=== PATIENT | male | born 1940 | race American Indian/Alaskan Native ===

== ENCOUNTER 2018-03-31 19:38 | Emergency (ER) | payer SELFPAY ==
[2018-03-31] MEDS ORDERED: ADRENALIN ONE (19:40)
[2018-03-31] MEDS ORDERED: SODIUM BICARBONATE IV ONE (19:40)
--- NOTE | 2018-03-31 20:17 | Emergency Department Report ---
ED CPR HPI - General Chief Complaint: Cardiac Arrest/CPR Stated Complaint: CARDIAC ARREST Time Seen by Provider: 03/31/18 20:06 Source: family, EMS - History of Present Illness Initial Comments: 77-year-old male brought in by EMS in cardiac arrest. Patient last seen normal at 7 AM by family. Patient was found unresponsive in the passenger's seat of a car at his home, with windows rolled up, and car engine off. states she broke the window with a hammer in order to get to the patient. called 911 , police arrived, pulled pt out of car, and started CPR. Upon EMS arrival, patient found to be in asystole. Unknown down time. Accu-Check was 88. ACLS was initiated , Avery airway placed. Patient was given 3 rounds of epi, 1 bicarb. Patient and EMS care for approximately 25 minutes. Patient continued to be in asystole. He was transported to ED at that time. MD Complaint: found unresponsive -: minute(s) (30) Place: home Bystander CPR Performed: Yes (by police upon arrival) Initial Findings in the Field: unresponsive, no respirations, no pulse ROSC in the Field: No Associated Injuries: No Treatments Prior to Arrival: other airway device (Avery tube), chest compressions , epinephrine mgs # (3), sodium bicarbonate (1 amp) - Related Data Home Medications Medication Instructions Recorded Confirmed Last Taken Unobtainable 03/31/18 03/31/18 Unknown Allergies Allergy/AdvReac Type Severity Reaction Status Date / Time No Known Allergies Allergy Unverified 03/31/18 21:25 ED Review of Systems ROS: Stated complaint: CARDIAC ARREST Other details as noted in HPI Comment: Unobtainable due to pts medical conditions (pt in cardiac arrest) ED Past Medical Hx - Medications Home Medications: Home Medications Medication Instructions Recorded Confirmed Last Taken Type Unobtainable 03/31/18 03/31/18 Unknown History ED Physical Exam - General General appearance: other (unresponsive) - Head Head exam: Present: atraumatic, normocephalic - Eye Pupils: Present: other (fixed and dilated) - ENT ENT exam: Present: mucous membranes dry - Neck Neck exam: Present: other (decreased ROM with extension of neck) - Respiratory Respiratory exam: Present: other (no spontaneous breaths) - Cardiovascular Cardiovascular Exam: Present: other (no palpable pulse) - GI/Abdominal GI/Abdominal exam: Present: distended (moderately distended) - Extremities Exam Extremities exam: Present: other (fingertips cyanotic) - Neurological Exam Neurological exam: Present: other (GCS=3) - Skin Skin exam: Present: warm, dry - Intubation Time Out Performed: Yes Sedative: none Paralytic: other (none) Laryngoscope: Radha Size: 3 ET Tube Size: 8 Tube Secured Depth (cm): 24 Tube Secured Location: lips Tube Placement Confirmation: visualized tube passing t, equal breath sounds bilat, no breath sounds over epi, confirmation by capnometr Patient Tolerated Procedure: well Intubation Complications: none ED Medical Decision Making - Medical Decision Making 77-year-old male brought to ED in cardiac arrest. Unknown down time. Patient in asystole despite chest compressions, intubation, and medication administration by EMS and here in ED. at bedside during resuscitation. Explained that since pt has unknown down time, has not responded to ACLS and continues to be in asystole, chances were very minimal that we would be able to get ROSC. Also spoke w/ regarding effects of anoxic brain injury w/ prolonged arrest. After several rounds of Epi and bicarb here in ED, requested that CPR be terminated. Time of 19:58. - Differential Diagnosis CVA, overdose, suicide, MD, arrythmia, PE, AAA Critical care attestation.: If time is entered above; I have spent that time in minutes in the direct care of this critically ill patient, excluding procedure time. ED Disposition Clinical Impression: Cardiac arrest Disposition: [id number] Is pt being admited?: No
== END 2018-03-31 23:45 ==
LOC: EEVIPCON 19:38 → ED 19:38
DX: I46.9 Cardiac arrest, cause unspecified (principal)
CPT/HCPCS: 31500; 92950; 99285; J0171